=== PATIENT | male | born 1980 | race Caucasian/White ===

== ENCOUNTER 2022-07-13 16:44 | Emergency (ER) | payer MEDICAID ==
[~2022-07-13] VITALS: Ht 180.3 cm; Wt 86.0 kg
[~2022-07-13 16:44] MED LIST: INSU100V36 SQ; LANTUS SQ
[2022-07-13 18:16] LABS: BASOPHILS # (AUTO) 0.1 X10'3 (0-0.2); BASOPHILS % (AUTO) 0.5 % (0-1); EOSINOPHILS # (AUTO) 0.1 X10'3 (0-0.9); EOSINOPHILS % (AUTO) 0.8 % (0-6); HEMATOCRIT 47.1 % (42.0-52.0); HEMOGLOBIN 15.7 g/dl (14.0-17.9); LYMPHOCYTES # (AUTO) 2.3 X10'3 (1.1-4.8); LYMPHOCYTES % (AUTO) 18.4 % (21-51); MEAN CORPUSCULAR HEMOGLOBIN 30.3 PG (27.0-31.0); MEAN CORPUSCULAR HGB CONC 33.4 g/dL (33.0-36.5); MEAN CORPUSCULAR VOLUME 90.6 FL (78-98); MEAN PLATELET VOLUME 7.4 FL (7.4-10.4); MONOCYTES # (AUTO) 0.6 X10'3 (0-0.9); MONOCYTES % (AUTO) 4.7 % (2-12); NEUTROPHILS # (AUTO) 9.7 X10'3 (1.8-7.7); NEUTROPHILS % (AUTO) 75.6 % (42-75); PLATELET COUNT 533 X10'3 (140-440); RED BLOOD COUNT 5.19 X10'6 (4.70-6.10); RED CELL DISTRIBUTION WIDTH 13.3 % (11.5-14.5); WHITE BLOOD COUNT 12.8 X10'3 (4.5-11.0)
[2022-07-13 18:45] LABS: ALANINE AMINOTRANSFERASE 33 U/L (12-78); ALBUMIN 3.7 G/DL (3.4-5.0); ALBUMIN/GLOBULIN RATIO 0.8 (1.1-1.5); ALKALINE PHOSPHATASE 181 IU/L (46-116); ANION GAP 16 (8-16); ASPARTATE AMINO TRANSFERASE 43 U/L (10-37); BILIRUBIN,TOTAL 0.8 MG/DL (0.1-1.0); BLOOD UREA NITROGEN 12 MG/DL (7-18); BUN/CREATININE RATIO 11.4 (5.4-32.0); CALCIUM 9.9 MG/DL (8.5-10.1); CHLORIDE 94 MMOL/L (99-107); CREATININE 1.05 MG/DL (0.60-1.10); POTASSIUM 5.6 MMOL/L (3.5-5.1); SODIUM 135 MMOL/L (135-145); TOTAL CARBON DIOXIDE 24.9 MMOL/L (24-32); TOTAL PROTEIN 8.1 G/DL (6.4-8.2); eGFR 77 ML/MIN
[2022-07-13 19:08] LABS: GLUCOSE 555 MG/DL (70-104)
[2022-07-13] MEDS ORDERED: insulin regular, human U-100 3ml vial - multi-dose IV ONE (19:15)
[2022-07-13] MEDS ORDERED: normal saline 1000ML IV soln IVB ONE (19:15)
[2022-07-13] MEDS ORDERED: ondansetron/PF 4mg/2ml inj IV ONE (19:30)
[2022-07-13 19:53] LABS: CLARITY,URINE CLEAR (Clear); COLOR,URINE STRAW (Yellow); GLUCOSE, URINE >=1000 mg/dl (Neg); KETONES,URINE >=80 mg/dl (Neg); LEUKOCYTE ESTERASE ,URINE NEGATIVE (Neg); NITRITES, URINE NEGATIVE (Neg); OCCULT BLOOD,URINE NEGATIVE (Neg); PH,URINE 5.5 (4.8-8.0); PROTEIN,URINE NEGATIVE (Neg); UROBILINOGEN,URINE 0.2 E.U/dL (0.2-1.0)
[2022-07-13 20:02] LABS: UA COLLECTION TYPE CLN CATCH MIDSTREAM
[2022-07-13 20:06] LABS: RBC,URINE 0-2 /HPF (0-2)
[2022-07-13 20:07] LABS: BACTERIA,URINE NONE SEEN /HPF (Neg); MUCUS STRANDS NONE SEEN /LPF (Neg); SQUAMOUS EPITHELIAL CELL,UR NONE SEEN /LPF (FEW); WBC,URINE 0-4 /HPF (0-4)
[2022-07-13] MEDS ORDERED: insulin regular, human 10 units/0.1 ml syringe IV ONE ×2 (20:35→21:25)
[2022-07-13 22:44] VITALS: BP 135/98
== END 2022-07-13 22:46 | disposition home or self-care (01) ==
LOC: ER 16:45
DX: E10.65 Type 1 diabetes mellitus with hyperglycemia (principal)
CPT/HCPCS: 36415; 80053; 81001; 82948; 85025; 87088; 96361; 96374; 96375; 96376; 99284; J1815; J2405; J7030

== ENCOUNTER 2023-07-13 16:00 | Emergency (ER) | payer MEDICAID ==
[~2023-07-13] VITALS: Ht 180.3 cm; Wt 99.5 kg
[2023-07-13 16:09] VITALS: BP 175/104; PULSE 101; RESP 16; TEMP 97.8; O2SAT 96
== END 2023-07-14 07:24 | disposition left against medical advice (07) ==
LOC: ER 16:00
DX: E11.621 Type 2 diabetes mellitus with foot ulcer (principal); M79.671 Pain in right foot; Z53.21 Procedure and treatment not carried out due to patient leaving prior to being seen by health care provider
CPT/HCPCS: 73630; 99281

== ENCOUNTER → 2023-10-20 | Outpatient (CLI) | payer BC, MEDICAID ==
[2023-10-20 12:04] LABS: BASOPHILS % (AUTO) 0.6 % (0-1); EOSINOPHILS # (AUTO) 0.1 X10'3 (0-0.9); EOSINOPHILS % (AUTO) 2.2 % (0-6); HEMATOCRIT 50.8 % (42.0-52.0); HEMOGLOBIN 16.9 g/dl (14.0-17.9); LYMPHOCYTES # (AUTO) 2.7 X10'3 (1.1-4.8); LYMPHOCYTES % (AUTO) 45.7 % (21-51); MEAN CORPUSCULAR HEMOGLOBIN 30.3 PG (27.0-31.0); MEAN CORPUSCULAR HGB CONC 33.3 g/dL (33.0-36.5); MEAN CORPUSCULAR VOLUME 91.1 FL (78-98); MEAN PLATELET VOLUME 7.7 FL (7.4-10.4); MONOCYTES # (AUTO) 0.4 X10'3 (0-0.9); MONOCYTES % (AUTO) 6.7 % (2-12); NEUTROPHILS # (AUTO) 2.6 X10'3 (1.8-7.7); NEUTROPHILS % (AUTO) 44.8 % (42-75); PLATELET COUNT 295 X10'3 (140-440); RED BLOOD COUNT 5.58 X10'6 (4.70-6.10); RED CELL DISTRIBUTION WIDTH 13.6 % (11.5-14.5); WHITE BLOOD COUNT 5.9 X10'3 (4.5-11.0)
[2023-10-20 12:27] LABS: ALANINE AMINOTRANSFERASE 22 U/L (12-78); ALBUMIN/GLOBULIN RATIO 1.1 (1.1-1.5); ALKALINE PHOSPHATASE 138 IU/L (46-116); ANION GAP 5 (8-16); ASPARTATE AMINO TRANSFERASE 11 U/L (10-37); BILIRUBIN,TOTAL 0.6 MG/DL (0.1-1.0); BLOOD UREA NITROGEN 12 MG/DL (7-18); CALCIUM 9.1 MG/DL (8.5-10.1); CHLORIDE 104 MMOL/L (99-107); CHOL/HDL RATIO 4.4 (0.00-4.99); CHOLESTEROL 218 MG/DL (0-200); CREATININE 0.92 MG/DL (0.60-1.10); GLUCOSE 322 MG/DL (70-104); HDL CHOLESTEROL 50 MG/DL (35-60); LDL CHOLESTEROL 131 MG/DL (50-100); POTASSIUM 4.4 MMOL/L (3.5-5.1); SODIUM 137 MMOL/L (135-145); THYROID STIMULATING HORMONE 0.81 ulU/ml (0.34-4.50); TOTAL CARBON DIOXIDE 28.5 MMOL/L (24-32); TOTAL PROTEIN 7.5 G/DL (6.4-8.2); TRIGLYCERIDES 126 MG/DL (20-135); eGFR 89 ML/MIN
[2023-10-20 12:33] LABS: HEMOGLOBIN A1C 10.6 % (4.5-6.2)
[2023-10-22 16:32] LABS: TESTOSTERONE, SERUM 815 ng/dL (264-916); THYROXINE (T4) 8.3 ug/dL (4.5-12.0)
== END | disposition home or self-care (01) ==
LOC: LAB 11:17
PROVIDERS: ATTEND Nurse Practitioner
DX: Z13.220 Encounter for screening for lipoid disorders (principal); E10.9 Type 1 diabetes mellitus without complications; R53.82 Chronic fatigue, unspecified
CPT/HCPCS: 36415; 80053; 80061; 83036; 84402; 84403; 84436; 84443; 85025

== ENCOUNTER 2023-12-23 07:07 | Outpatient (CLI) | payer BC, MEDICAID | END 2023-12-23 23:59 | disposition home or self-care (01) | LOC: RAD 07:07 | PROVIDERS: ATTEND Nurse Practitioner | DX: E04.2 Nontoxic multinodular goiter (principal); E05.90 Thyrotoxicosis, unspecified without thyrotoxic crisis or storm | CPT/HCPCS: 76536 ==

== ENCOUNTER 2024-08-04 20:24 | Emergency (ER) | payer BC, MEDICAID ==
[~2024-08-04] VITALS: Ht 180.3 cm; Wt 101.0 kg
[2024-08-04 20:30] VITALS: BP 129/82; PULSE 93; RESP 16; O2SAT 98
== END 2024-08-04 22:00 | disposition home or self-care (01) ==
LOC: ER 20:25
DX: S90.32XA Contusion of left foot, initial encounter (principal); E11.9 Type 2 diabetes mellitus without complications; X58.XXXA Exposure to other specified factors, initial encounter; Y93.89 Activity, other specified; Y92.89 Other specified places as the place of occurrence of the external cause; Y99.8 Other external cause status
CPT/HCPCS: 73610; 73630; 99284

== ENCOUNTER → 2024-09-27 | Outpatient (CLI) | payer BC, MEDICAID ==
[2024-09-27 13:32] LABS: BASOPHILS # (AUTO) 0.1 X10'3 (0-0.2); BASOPHILS % (AUTO) 0.8 % (0-1); EOSINOPHILS # (AUTO) 0.1 X10'3 (0-0.9); EOSINOPHILS % (AUTO) 1.9 % (0-6); HEMOGLOBIN 16.2 g/dl (14.0-17.9); LYMPHOCYTES # (AUTO) 2.6 X10'3 (1.1-4.8); LYMPHOCYTES % (AUTO) 39.4 % (21-51); MEAN CORPUSCULAR HGB CONC 33.7 g/dL (33.0-36.5); MEAN CORPUSCULAR VOLUME 89.1 FL (78-98); MONOCYTES # (AUTO) 0.4 X10'3 (0-0.9); MONOCYTES % (AUTO) 6.9 % (2-12); NEUTROPHILS # (AUTO) 3.3 X10'3 (1.8-7.7); PLATELET COUNT 270 X10'3 (140-440); RED BLOOD COUNT 5.39 X10'6 (4.70-6.10); RED CELL DISTRIBUTION WIDTH 13.3 % (11.5-14.5); WHITE BLOOD COUNT 6.5 X10'3 (4.5-11.0)
[2024-09-27 13:56] LABS: ALANINE AMINOTRANSFERASE 37 U/L (12-78); ALBUMIN 3.9 G/DL (3.4-5.0); ALBUMIN/GLOBULIN RATIO 1.3 (1.1-1.5); ALKALINE PHOSPHATASE 150 IU/L (46-116); ANION GAP 8 (8-16); ASPARTATE AMINO TRANSFERASE 16 U/L (10-37); BILIRUBIN,TOTAL 0.6 MG/DL (0.1-1.0); BLOOD UREA NITROGEN 12 MG/DL (7-18); BUN/CREATININE RATIO 12.6 (10.0-20.0); CALCIUM 8.7 MG/DL (8.5-10.1); CHLORIDE 106 MMOL/L (99-107); CHOL/HDL RATIO 2.1 (0.00-4.99); CHOLESTEROL 99 MG/DL (0-200); CREATININE 0.95 MG/DL (0.60-1.10); GLUCOSE 254 MG/DL (70-104); HDL CHOLESTEROL 47 MG/DL (35-60); LDL CHOLESTEROL 41 MG/DL (50-100); POTASSIUM 4.5 MMOL/L (3.5-5.1); SODIUM 141 MMOL/L (135-145); THYROID STIMULATING HORMONE 1.14 ulU/ml (0.34-4.50); TOTAL CARBON DIOXIDE 27.5 MMOL/L (24-32); TRIGLYCERIDES 64 MG/DL (20-135); eGFR 86 ML/MIN
[2024-09-27 13:58] LABS: FREE T4 (FREE THYROXINE) 1.05 NG/DL (0.73-1.40)
[2024-09-29 11:11] LABS: THIIODOTHRONINE, FREE, SERUM 3.9 pg/mL (2.0-4.4); THYROID PEROXIDASE AB 31 IU/mL (0-34); VITAMIN D, 25-HYDROXY 22.4 ng/mL (30.0-100.0)
[2024-09-29 13:11] LABS: CREATININE, URINE 82.7 mg/dL (Not Estab.); MICROALB/CRT, RATIO 9 mg/g creat (0-29); MICROALBUMIN,U,RANDOM 7.4 ug/mL (Not Estab.)
[2024-10-02 13:12] LABS: ANTITHYROGLOBULIN AB 3.5 IU/mL (0.0-0.9)
[2024-10-02 19:08] LABS: THYROID STIMULATING IMMUNOGLBU < 0.10 IU/L (0.00-0.55)
== END | disposition home or self-care (01) ==
LOC: LAB 12:50
PROVIDERS: ATTEND Internal Medicine Endocrinology, Diabetes & Metabolism
DX: E10.65 Type 1 diabetes mellitus with hyperglycemia (principal); E04.2 Nontoxic multinodular goiter; E78.5 Hyperlipidemia, unspecified; E05.90 Thyrotoxicosis, unspecified without thyrotoxic crisis or storm; E55.9 Vitamin D deficiency, unspecified
CPT/HCPCS: 36415; 80053; 80061; 82043; 82306; 82570; 84439; 84443; 84445; 84481; 85025; 86376; 86800